=== PATIENT | male | born 1960 | race Caucasian/White ===

== ENCOUNTER 2018-12-27 11:00 | Emergency (ER) | payer MEDICARE, MEDICAID ==
[~2018-12-27] VITALS: Ht 180.3 cm; Wt 80.0 kg
--- NOTE | 2018-12-27 14:28 | NUR ---
pt states he's having some sob, acs protocol ordered
[2018-12-27 15:01] LABS: BASOPHILS % (AUTO) 0.6 % (0-1); EOSINOPHILS % (AUTO) 0.3 % (0-6); HEMATOCRIT 42.3 % (42.0-52.0); HEMOGLOBIN 14.3 g/dl (14.0-17.9); LYMPHOCYTES # (AUTO) 1.5 X10'3 (1.1-4.8); LYMPHOCYTES % (AUTO) 22.8 % (21-51); MEAN CORPUSCULAR HEMOGLOBIN 30.7 PG (27.0-31.0); MEAN CORPUSCULAR HGB CONC 33.8 g/dL (33.0-36.5); MEAN CORPUSCULAR VOLUME 90.9 FL (78-98); MEAN PLATELET VOLUME 8.3 FL (7.4-10.4); MONOCYTES # (AUTO) 0.5 X10'3 (0-0.9); NEUTROPHILS # (AUTO) 4.6 X10'3 (1.8-7.7); NEUTROPHILS % (AUTO) 69.3 % (42-75); PLATELET COUNT 190 X10'3 (140-440); RED BLOOD COUNT 4.65 X10'6 (4.70-6.10); RED CELL DISTRIBUTION WIDTH 13.4 % (11.5-14.5); WHITE BLOOD COUNT 6.7 X10'3 (4.5-11.0)
[2018-12-27 15:12] LABS: PARTIAL THROMBOPLASTIN TIME 26 SECONDS (22-32)
[2018-12-27 15:16] LABS: ALANINE AMINOTRANSFERASE 53 U/L (12-78); ALBUMIN 3.7 G/DL (3.4-5.0); ALBUMIN/GLOBULIN RATIO 1.1 (1.1-1.5); ALKALINE PHOSPHATASE 87 IU/L (46-116); ANION GAP 7 (8-16); ASPARTATE AMINO TRANSFERASE 32 U/L (10-37); BILIRUBIN,TOTAL 0.6 MG/DL (0.1-1.0); BLOOD UREA NITROGEN 18 MG/DL (7-18); CALCIUM 8.7 MG/DL (8.5-10.1); CHLORIDE 105 MMOL/L (99-107); GLUCOSE 129 MG/DL (70-104); SODIUM 139 MMOL/L (135-145); TOTAL CARBON DIOXIDE 27.5 MMOL/L (24-32); TOTAL PROTEIN 7.1 G/DL (6.4-8.2); eGFR 77 ML/MIN
[2018-12-27 16:27] VITALS: BP 98/58
== END 2018-12-27 16:29 | disposition home or self-care (01) ==
LOC: ER 11:01
DX: T43.211A Poisoning by selective serotonin and norepinephrine reuptake inhibitors, accidental (unintentional), initial encounter (principal); R42 Dizziness and giddiness; R53.83 Other fatigue; R68.2 Dry mouth, unspecified; Y92.89 Other specified places as the place of occurrence of the external cause
CPT/HCPCS: 36415; 71045; 80053; 84484; 85025; 85610; 85730; 93005; 99284

== ENCOUNTER 2019-12-09 15:52 | Emergency (ER) | payer MEDICARE, MEDICAID ==
[~2019-12-09] VITALS: Ht 180.3 cm; Wt 76.0 kg
[2019-12-09 15:58] VITALS: BP 124/53
--- NOTE | 2019-12-09 17:15 | NUR ---
ultrasound at [facility]
[2019-12-09 17:40] LABS: BASOPHILS # (AUTO) 0.1 X10'3 (0-0.2); BASOPHILS % (AUTO) 1.2 % (0-1); EOSINOPHILS % (AUTO) 0.7 % (0-6); HEMATOCRIT 38.8 % (42.0-52.0); HEMOGLOBIN 12.9 g/dl (14.0-17.9); LYMPHOCYTES # (AUTO) 2.1 X10'3 (1.1-4.8); LYMPHOCYTES % (AUTO) 36.5 % (21-51); MEAN CORPUSCULAR HGB CONC 33.3 g/dL (33.0-36.5); MEAN CORPUSCULAR VOLUME 93.1 FL (78-98); MEAN PLATELET VOLUME 9.1 FL (7.4-10.4); MONOCYTES # (AUTO) 0.6 X10'3 (0-0.9); MONOCYTES % (AUTO) 10.6 % (2-12); NEUTROPHILS # (AUTO) 2.9 X10'3 (1.8-7.7); PLATELET COUNT 167 X10'3 (140-440); RED BLOOD COUNT 4.17 X10'6 (4.70-6.10); RED CELL DISTRIBUTION WIDTH 12.9 % (11.5-14.5); WHITE BLOOD COUNT 5.7 X10'3 (4.5-11.0)
[2019-12-09 18:04] LABS: ALANINE AMINOTRANSFERASE 49 U/L (12-78); ALBUMIN 3.7 G/DL (3.4-5.0); ALBUMIN/GLOBULIN RATIO 1.1 (1.1-1.5); ALKALINE PHOSPHATASE 84 IU/L (46-116); ANION GAP 6 (8-16); ASPARTATE AMINO TRANSFERASE 36 U/L (10-37); BILIRUBIN,TOTAL 0.3 MG/DL (0.1-1.0); BLOOD UREA NITROGEN 24 MG/DL (7-18); BUN/CREATININE RATIO 26.7 (5.4-32.0); CALCIUM 8.5 MG/DL (8.5-10.1); CHLORIDE 105 MMOL/L (99-107); GLUCOSE 100 MG/DL (70-104); POTASSIUM 4.2 MMOL/L (3.5-5.1); SODIUM 141 MMOL/L (135-145); TOTAL CARBON DIOXIDE 29.6 MMOL/L (24-32); eGFR 86 ML/MIN
[2019-12-09] MEDS ORDERED: IBUP-1984 PO (18:27)
== END 2019-12-09 18:40 | disposition home or self-care (01) ==
LOC: ER 15:52
DX: M25.572 Pain in left ankle and joints of left foot (principal); M25.472 Effusion, left ankle; Z98.890 Other specified postprocedural states; Z79.899 Other long term (current) drug therapy
CPT/HCPCS: 29515; 36415; 73610; 80053; 85025; 85651; 93971; 99285

== ENCOUNTER 2019-12-12 15:10 | Emergency (ER) | payer MEDICARE, MEDICAID ==
[~2019-12-12] VITALS: Ht 180.3 cm; Wt 79.7 kg
[~2019-12-12 15:10] MED LIST: IBUP-1984 PO
[2019-12-12 16:39] LABS: BASOPHILS # (AUTO) 0.1 X10'3 (0-0.2); EOSINOPHILS % (AUTO) 0.5 % (0-6); HEMATOCRIT 39.4 % (42.0-52.0); LYMPHOCYTES # (AUTO) 1.9 X10'3 (1.1-4.8); LYMPHOCYTES % (AUTO) 35.6 % (21-51); MEAN CORPUSCULAR HEMOGLOBIN 30.3 PG (27.0-31.0); MEAN CORPUSCULAR HGB CONC 32.9 g/dL (33.0-36.5); MEAN CORPUSCULAR VOLUME 92.2 FL (78-98); MEAN PLATELET VOLUME 9.2 FL (7.4-10.4); MONOCYTES # (AUTO) 0.6 X10'3 (0-0.9); MONOCYTES % (AUTO) 10.1 % (2-12); NEUTROPHILS # (AUTO) 2.9 X10'3 (1.8-7.7); NEUTROPHILS % (AUTO) 52.8 % (42-75); PLATELET COUNT 166 X10'3 (140-440); RED BLOOD COUNT 4.27 X10'6 (4.70-6.10); RED CELL DISTRIBUTION WIDTH 12.8 % (11.5-14.5); WHITE BLOOD COUNT 5.5 X10'3 (4.5-11.0)
[2019-12-12] MEDS ORDERED: HYDROcodone/acetaminophen 10/325mg tab PO ONE (17:05)
[2019-12-12 17:12] VITALS: BP 106/79
== END 2019-12-12 17:13 | disposition home or self-care (01) ==
LOC: ER 15:10
DX: M25.572 Pain in left ankle and joints of left foot (principal); Z79.899 Other long term (current) drug therapy; Z87.891 Personal history of nicotine dependence
CPT/HCPCS: 36415; 84145; 85025; 99283

== ENCOUNTER 2019-12-29 12:57 | Day surgery (SDC) | payer MEDICARE, MEDICAID ==
[2019-12-29] MEDS ORDERED: LIDOcaine 2% 5ml jelly ONE (14:02)
== END 2019-12-29 14:10 | disposition home or self-care (01) ==
LOC: WOUND CARE 12:57 → EDSTATUS 13:20 → WOUND CARE 14:10
PROVIDERS: ATTEND Nurse Practitioner Family
DX: S91.002D Unspecified open wound, left ankle, subsequent encounter (principal); L97.322 Non-pressure chronic ulcer of left ankle with fat layer exposed; M86.672 Other chronic osteomyelitis, left ankle and foot; M25.472 Effusion, left ankle; Z98.890 Other specified postprocedural states; Z79.899 Other long term (current) drug therapy; Z87.891 Personal history of nicotine dependence; X58.XXXD Exposure to other specified factors, subsequent encounter
CPT/HCPCS: 97597

== ENCOUNTER 2020-01-02 09:59 | Day surgery (SDC) | payer MEDICARE, MEDICAID ==
[2020-01-02] MEDS ORDERED: LIDOcaine 2% 5ml jelly ONE (10:17)
[2020-01-02 12:01] LABS: BASOPHILS # (AUTO) 0.1 X10'3 (0-0.2); BASOPHILS % (AUTO) 0.8 % (0-1); EOSINOPHILS % (AUTO) 0.6 % (0-6); HEMATOCRIT 38.8 % (42.0-52.0); LYMPHOCYTES # (AUTO) 1.8 X10'3 (1.1-4.8); LYMPHOCYTES % (AUTO) 28.1 % (21-51); MEAN CORPUSCULAR HEMOGLOBIN 30.7 PG (27.0-31.0); MEAN CORPUSCULAR HGB CONC 33.4 g/dL (33.0-36.5); MEAN CORPUSCULAR VOLUME 91.9 FL (78-98); MEAN PLATELET VOLUME 8.7 FL (7.4-10.4); MONOCYTES # (AUTO) 0.6 X10'3 (0-0.9); MONOCYTES % (AUTO) 10.1 % (2-12); NEUTROPHILS # (AUTO) 3.9 X10'3 (1.8-7.7); NEUTROPHILS % (AUTO) 60.4 % (42-75); PLATELET COUNT 162 X10'3 (140-440); RED BLOOD COUNT 4.22 X10'6 (4.70-6.10); RED CELL DISTRIBUTION WIDTH 12.8 % (11.5-14.5); WHITE BLOOD COUNT 6.4 X10'3 (4.5-11.0)
[2020-01-02 12:20] LABS: ALANINE AMINOTRANSFERASE 46 U/L (12-78); ALBUMIN 3.7 G/DL (3.4-5.0); ALBUMIN/GLOBULIN RATIO 1.1 (1.1-1.5); ALKALINE PHOSPHATASE 75 IU/L (46-116); ANION GAP 9 (8-16); ASPARTATE AMINO TRANSFERASE 35 U/L (10-37); BILIRUBIN,TOTAL 0.5 MG/DL (0.1-1.0); BLOOD UREA NITROGEN 22 MG/DL (7-18); BUN/CREATININE RATIO 23.9 (5.4-32.0); CALCIUM 8.5 MG/DL (8.5-10.1); CHLORIDE 103 MMOL/L (99-107); CREATININE 0.92 MG/DL (0.60-1.10); GLUCOSE 89 MG/DL (70-104); POTASSIUM 4.3 MMOL/L (3.5-5.1); SODIUM 139 MMOL/L (135-145); TOTAL CARBON DIOXIDE 27.5 MMOL/L (24-32); eGFR 84 ML/MIN
[2020-01-02 12:36] LABS: C-REACTIVE PROTEIN < 0.05 MG/DL (0.0-0.5)
== END 2020-01-02 12:02 | disposition home or self-care (01) ==
LOC: WOUND CARE 09:59
PROVIDERS: ATTEND Nurse Practitioner
DX: S91.002D Unspecified open wound, left ankle, subsequent encounter (principal); L97.322 Non-pressure chronic ulcer of left ankle with fat layer exposed; M86.672 Other chronic osteomyelitis, left ankle and foot; M25.472 Effusion, left ankle; M25.572 Pain in left ankle and joints of left foot; Z98.890 Other specified postprocedural states; Z79.899 Other long term (current) drug therapy; Z87.891 Personal history of nicotine dependence; X58.XXXD Exposure to other specified factors, subsequent encounter
CPT/HCPCS: 36415; 73630; 80053; 85025; 85651; 86140; 87070; 87075; 87077; 87102; 87186; 97597

== ENCOUNTER 2020-01-07 13:05 | Day surgery (SDC) | payer MEDICARE, MEDICAID ==
[2020-01-07] MEDS ORDERED: LIDOcaine 2% 5ml jelly ONE (13:28)
== END 2020-01-07 14:30 | disposition home or self-care (01) ==
LOC: WOUND CARE 13:05
PROVIDERS: ATTEND Nurse Practitioner
DX: L97.322 Non-pressure chronic ulcer of left ankle with fat layer exposed (principal); M86.672 Other chronic osteomyelitis, left ankle and foot; M25.742 Osteophyte, left hand; Z98.890 Other specified postprocedural states; Z79.899 Other long term (current) drug therapy; Z87.891 Personal history of nicotine dependence
CPT/HCPCS: 97597

== ENCOUNTER → 2020-01-16 | Day surgery (SDC) | payer MEDICARE, MEDICAID ==
[~2020-01-16] MED LIST changes: -IBUP-1984 PO; +LIDOcaine 2% 5ml jelly ONE
== END | disposition home or self-care (01) ==
LOC: WOUND CARE 13:24
PROVIDERS: ATTEND Nurse Practitioner
DX: L97.322 Non-pressure chronic ulcer of left ankle with fat layer exposed (principal); M86.672 Other chronic osteomyelitis, left ankle and foot; M25.742 Osteophyte, left hand; Z98.890 Other specified postprocedural states; Z79.899 Other long term (current) drug therapy; Z87.891 Personal history of nicotine dependence
CPT/HCPCS: 97597

== ENCOUNTER 2020-01-23 13:22 | Day surgery (SDC) | payer MEDICARE, MEDICAID ==
[2020-01-23] MEDS ORDERED: LIDOcaine 2% 5ml jelly ONE (13:45)
[2020-01-23] MEDS ORDERED: GADOTERATE MEGLUMINE 7.5 MMOL/15 ML VIAL IV ONE (15:43)
[2020-02-02] MEDS ORDERED: BUPR8TAB4 SL (14:58)
[2020-02-02] MEDS ORDERED: GLEC1TAB PO (14:58)
[2020-02-02] MEDS ORDERED: TRAZ150T78 PO (14:58)
[2020-02-02] MEDS ORDERED: PRAZ1CAP5 PO (14:58)
== END 2020-01-23 14:45 | disposition home or self-care (01) ==
LOC: WOUND CARE 13:22
PROVIDERS: ATTEND Nurse Practitioner
DX: S91.002A Unspecified open wound, left ankle, initial encounter (principal); L97.322 Non-pressure chronic ulcer of left ankle with fat layer exposed; M86.672 Other chronic osteomyelitis, left ankle and foot; M25.742 Osteophyte, left hand; Z98.890 Other specified postprocedural states; Z79.899 Other long term (current) drug therapy; Z87.891 Personal history of nicotine dependence; X58.XXXA Exposure to other specified factors, initial encounter; Y93.89 Activity, other specified; Y92.89 Other specified places as the place of occurrence of the external cause; Y99.8 Other external cause status
CPT/HCPCS: 73723; 97597; A9575

== ENCOUNTER 2020-01-30 09:16 | Outpatient (CLI) | payer MEDICARE, MEDICAID ==
[2020-01-30 10:58] LABS: BASOPHILS # (AUTO) 0.1 X10'3 (0-0.2); EOSINOPHILS # (AUTO) 0.1 X10'3 (0-0.9); MEAN PLATELET VOLUME 8.9 FL (7.4-10.4); PRE OP PLATELET COUNT 173 X10'3 (140-440)
[2020-01-30 11:00] LABS: LYMPHOCYTES # (AUTO) 2.1 X10'3 (1.1-4.8); LYMPHOCYTES % (AUTO) 35.4 % (21-51); MEAN CORPUSCULAR HEMOGLOBIN 31.1 PG (27.0-31.0); MEAN CORPUSCULAR HGB CONC 33.8 g/dL (33.0-36.5); MEAN CORPUSCULAR VOLUME 91.9 FL (78-98); MONOCYTES # (AUTO) 0.7 X10'3 (0-0.9); MONOCYTES % (AUTO) 12.3 % (2-12); NEUTROPHILS % (AUTO) 50.3 % (42-75); PRE OP HEMATOCRIT 39.6 % (42.0-52.0); PRE OP HEMOGLOBIN 13.4 g/dL (14.0-17.9); RED BLOOD COUNT 4.31 X10'6 (4.70-6.10); RED CELL DISTRIBUTION WIDTH 12.8 % (11.5-14.5)
[2020-01-30 11:09] LABS: ALBUMIN 3.8 G/DL (3.4-5.0); ALBUMIN/GLOBULIN RATIO 1.2 (1.1-1.5); ALKALINE PHOSPHATASE 81 IU/L (46-116); BLOOD UREA NITROGEN 23 MG/DL (7-18); BUN/CREATININE RATIO 25.8 (5.4-32.0); CHLORIDE 103 MMOL/L (99-107); CREATININE 0.89 MG/DL (0.60-1.10); PRE OP ALT 33 U/L (30-65); PRE OP ANION GAP 7 (8-16); PRE OP AST 23 U/L (10-37); PRE OP BILIRUB, TOTAL 0.7 MG/DL (0.0-1.0); PRE OP GLUCOSE 87 MG/DL (70-104); PRE OP POTASSIUM 4.2 MMOL/L (3.4-5.1); PRE OP SODIUM 138 MMOL/L (135-145); TOTAL CARBON DIOXIDE 28.5 MMOL/L (24-32); TOTAL PROTEIN 7.1 G/DL (6.4-8.2); eGFR 87 ML/MIN
[2020-02-02] MEDS ORDERED: TRAZ150T78 PO (14:58)
[2020-02-02] MEDS ORDERED: PRAZ1CAP5 PO (14:58)
[2020-02-02] MEDS ORDERED: GLEC1TAB PO (14:58)
[2020-02-02] MEDS ORDERED: BUPR8TAB4 SL (14:58)
== END 2020-01-30 11:28 | disposition home or self-care (01) ==
LOC: WOUND CARE 09:16 → EDSTATUS 09:20 → WOUND CARE 11:28
PROVIDERS: ATTEND Nurse Practitioner
DX: S91.002D Unspecified open wound, left ankle, subsequent encounter (principal); M86.672 Other chronic osteomyelitis, left ankle and foot; M25.742 Osteophyte, left hand; Z98.890 Other specified postprocedural states; Z79.899 Other long term (current) drug therapy; Z87.891 Personal history of nicotine dependence; X58.XXXD Exposure to other specified factors, subsequent encounter
CPT/HCPCS: 80053; 85025; 87635; G0463

== ENCOUNTER 2020-02-06 05:34 | Day surgery (SDC) | payer MEDICARE, MEDICAID ==
[2020-02-06] VITALS (7 sets, daily range): BP systolic 96–133; BP diastolic 56–75
[~2020-02-06] VITALS: Ht 180.3 cm; Wt 78.0 kg
[~2020-02-06 05:34] MED LIST changes: +BUPR8TAB4 SL; +GLEC1TAB PO; -LIDOcaine 2% 5ml jelly ONE; +PRAZ1CAP5 PO; +TRAZ150T78 PO; +ceFAZolin 2gm in dextrose, iso 50 ML IV ONE; +famotidine 20mg tablet PO ONE; +ringers solution, lacted 1,000 ML IV SCH; +vancomycin 1,500 MG in NS 300ml IV soln IV ONE
[2020-02-06] MEDS ORDERED: LIDOcaine 1% (10mg/ml) 2ml vial ONE (06:33)
[2020-02-06] MEDS ORDERED: cloNIDine hcl/PF 100mcg/ml inj ONE (06:41)
[2020-02-06] MEDS ORDERED: fentaNYL/PF 50MCG/1 ML 2ML syringe ONE (06:55)
[2020-02-06] MEDS ORDERED: midazolam 2 mg/2 ml injection ONE (06:58)
[2020-02-06] MEDS ORDERED: vancomycin 1,000mg inj ONE (07:11)
[2020-02-06] MEDS ORDERED: propofol inj 20 ML IV ONE (07:25)
[2020-02-06] MEDS ORDERED: glycopyrrolate 0.2mg/ml inj ONE (07:26)
[2020-02-06] MEDS ORDERED: dexamethasone sod phosphate 4mg/ml inj. ONE (07:26)
[2020-02-06] MEDS ORDERED: ROPIVAcaine 0.5% (5mg/ml) 30ml vial ONE (07:26)
[2020-02-06] MEDS ORDERED: LIDOcaine 2% (20mg/ml) 5ml vial ONE (07:26)
[2020-02-06] MEDS ORDERED: bacitracin 15gm ointment TP ONE (07:34)
[2020-02-06] MEDS ORDERED: ondansetron/PF 4mg/2ml inj ONE (07:39)
[2020-02-06] MEDS ORDERED: ondansetron/PF 4mg/2ml inj IV PRN (07:50)
[2020-02-06] MEDS ORDERED: morphine 2 MG/ML inj. syringe IV PRN (07:50)
[2020-02-06] MEDS ORDERED: meperidine/PF 25mg/ml syringe IV PRN (07:50)
[2020-02-06] MEDS ORDERED: morphine 4 MG/ML inj SYRINge IV PRN (07:50)
[2020-02-06] MEDS ORDERED: acetaminophen 1,000mg/100ml IV 100 ML IV PRN (07:50)
[2020-02-06] MEDS ORDERED: proCHLORperazine 10 MG/2 ml inj IV PRN (07:50)
[2020-02-06] MEDS ORDERED: ringers solution, lacted 1,000 ML IV SCH (07:50)
[2020-02-06] MEDS ORDERED: HYDROmorphone inj. 0.5 MG/0.5 ML DISP.SYRIN IV PRN ×2 (07:50)
--- NOTE | 2020-02-06 07:50 | NUR ---
Received from OR via BED, accompanied by Anesthesiologist DR CALHOUN-- and report given by Anesthesiolgist. PATIENT A&OX4, DENIES PAIN, V/S WNL, NEUROVASCULAR CHECKS INTACT, 20G PIV LUE, SCD ON, DRESSING TO LEFT ANKLE CDI
--- NOTE | 2020-02-06 08:40 | NUR ---
PATIENT A&OX4, DENIES PAIN, V/S WNL, NEUROVASCULAR CHECKS INTACT, 20G PIV LUE D/C, SCD OFF, DRESSING TO LEFT ANKLE CDI. I HAVE REVIEWED D/C INSTRUCTIONS WITH PATIENT AND FAMILY AND THEY HAVE VERBALIZED UNDERSTANDING. PATIENT D/C HOME WITH ALL BELONGINGS AND FAMILY GAVE TRANSPORT HOME.
== END 2020-02-06 08:40 | disposition home or self-care (01) ==
LOC: PAS 05:34
PROVIDERS: ATTEND Podiatrist Foot & Ankle Surgery
DX: M86.672 Other chronic osteomyelitis, left ankle and foot (principal); G89.18 Other acute postprocedural pain; F41.9 Anxiety disorder, unspecified; Z79.899 Other long term (current) drug therapy; Z86.19 Personal history of other infectious and parasitic diseases; Z98.890 Other specified postprocedural states; Z87.891 Personal history of nicotine dependence
CPT/HCPCS: 28120; 64445; 64447; 76942; 82948; 87070; 87075; 87077; 87186; 93005; A6222; J0735; J1100; J2001; J2250; J2405; J2704; J3010; J3370; J7040; A4618; A6449; A7000; J2795; J3490; J7120

== ENCOUNTER 2020-02-12 09:20 | Day surgery (SDC) | payer MEDICARE, MEDICAID ==
[~2020-02-12 09:20] MED LIST changes: -ceFAZolin 2gm in dextrose, iso 50 ML IV ONE; -famotidine 20mg tablet PO ONE; -ringers solution, lacted 1,000 ML IV SCH; -vancomycin 1,500 MG in NS 300ml IV soln IV ONE
== END 2020-02-12 11:03 | disposition home or self-care (01) ==
LOC: WOUND CARE 09:20
PROVIDERS: ATTEND Nurse Practitioner
DX: T81.89XA Other complications of procedures, not elsewhere classified, initial encounter (principal); L97.322 Non-pressure chronic ulcer of left ankle with fat layer exposed; M86.672 Other chronic osteomyelitis, left ankle and foot; F41.9 Anxiety disorder, unspecified; M25.742 Osteophyte, left hand; Z98.890 Other specified postprocedural states; Z86.19 Personal history of other infectious and parasitic diseases; Z79.899 Other long term (current) drug therapy; Z87.891 Personal history of nicotine dependence; Y83.8 Other surgical procedures as the cause of abnormal reaction of the patient, or of later complication, without mention of misadventure at the time of the procedure; Y92.234 Operating room of hospital as the place of occurrence of the external cause
CPT/HCPCS: 97597

== ENCOUNTER 2020-02-20 10:29 | Outpatient (CLI) | payer MEDICARE, MEDICAID ==
[2020-02-20] MEDS ORDERED: LIDOcaine 2% 5ml jelly ONE ×2 (10:38→10:45)
== END 2020-02-20 11:15 | disposition home or self-care (01) ==
LOC: WOUND CARE 10:29
PROVIDERS: ATTEND Nurse Practitioner
DX: T81.89XD Other complications of procedures, not elsewhere classified, subsequent encounter (principal); L97.322 Non-pressure chronic ulcer of left ankle with fat layer exposed; M86.672 Other chronic osteomyelitis, left ankle and foot; F41.9 Anxiety disorder, unspecified; M25.742 Osteophyte, left hand; Z98.890 Other specified postprocedural states; Z86.19 Personal history of other infectious and parasitic diseases; Z79.899 Other long term (current) drug therapy; Z87.891 Personal history of nicotine dependence; Y83.8 Other surgical procedures as the cause of abnormal reaction of the patient, or of later complication, without mention of misadventure at the time of the procedure
CPT/HCPCS: 97597; G0463

== ENCOUNTER 2020-02-27 09:56 | Outpatient (CLI) | payer MEDICARE, MEDICAID ==
[2020-02-27] MEDS ORDERED: LIDOcaine 2% 5ml jelly ONE (10:09)
== END 2020-02-27 23:59 | disposition home or self-care (01) ==
LOC: WOUND CARE 09:56
PROVIDERS: ATTEND Nurse Practitioner
DX: T81.89XD Other complications of procedures, not elsewhere classified, subsequent encounter (principal); L97.322 Non-pressure chronic ulcer of left ankle with fat layer exposed; M86.672 Other chronic osteomyelitis, left ankle and foot; F41.9 Anxiety disorder, unspecified; M25.742 Osteophyte, left hand; Z86.19 Personal history of other infectious and parasitic diseases; Z98.890 Other specified postprocedural states; Z79.899 Other long term (current) drug therapy; Z87.891 Personal history of nicotine dependence; Y83.8 Other surgical procedures as the cause of abnormal reaction of the patient, or of later complication, without mention of misadventure at the time of the procedure
CPT/HCPCS: 11042

== ENCOUNTER → 2020-03-05 | Outpatient (CLI) | payer MEDICARE, MEDICAID ==
[~2020-03-05] MED LIST changes: +BACDS PO; +CEPH500C2 PO; +LIDOcaine 2% 5ml jelly ONE; +METR-159 PO
== END | disposition home or self-care (01) ==
LOC: EDSTATUS 09:20 → WOUND CARE 09:20
PROVIDERS: ATTEND Nurse Practitioner
DX: T81.89XD Other complications of procedures, not elsewhere classified, subsequent encounter (principal); L97.322 Non-pressure chronic ulcer of left ankle with fat layer exposed; M86.672 Other chronic osteomyelitis, left ankle and foot; F41.9 Anxiety disorder, unspecified; M25.742 Osteophyte, left hand; Z86.19 Personal history of other infectious and parasitic diseases; Z98.890 Other specified postprocedural states; Z79.899 Other long term (current) drug therapy; Z87.891 Personal history of nicotine dependence; Y83.8 Other surgical procedures as the cause of abnormal reaction of the patient, or of later complication, without mention of misadventure at the time of the procedure
CPT/HCPCS: 11042; 11045; 97605; 97607

== ENCOUNTER 2020-03-09 13:25 | Outpatient (CLI) | payer MEDICARE, MEDICAID ==
[~2020-03-09 13:25] MED LIST changes: -BACDS PO; -CEPH500C2 PO; -LIDOcaine 2% 5ml jelly ONE; -METR-159 PO
[2020-03-09] MEDS ORDERED: LIDOcaine 2% 5ml jelly ONE (14:14)
[2020-03-22] MEDS ORDERED: METR-159 PO (11:00)
== END 2020-03-09 23:59 | disposition home or self-care (01) ==
LOC: WOUND CARE 13:25
PROVIDERS: ATTEND Nurse Practitioner
DX: T81.89XD Other complications of procedures, not elsewhere classified, subsequent encounter (principal); L97.322 Non-pressure chronic ulcer of left ankle with fat layer exposed; M86.672 Other chronic osteomyelitis, left ankle and foot; L84 Corns and callosities; M25.742 Osteophyte, left hand; F41.9 Anxiety disorder, unspecified; Z86.19 Personal history of other infectious and parasitic diseases; Z98.890 Other specified postprocedural states; Z79.899 Other long term (current) drug therapy; Z87.891 Personal history of nicotine dependence; Z98.1 Arthrodesis status; Z86.14 Personal history of Methicillin resistant Staphylococcus aureus infection; Y83.8 Other surgical procedures as the cause of abnormal reaction of the patient, or of later complication, without mention of misadventure at the time of the procedure
CPT/HCPCS: 11042

== ENCOUNTER → 2020-03-12 | Outpatient (CLI) | payer MEDICARE, MEDICAID ==
[~2020-03-12] MED LIST changes: +LIDOcaine 2% 5ml jelly ONE
== END | disposition home or self-care (01) ==
LOC: EDSTATUS 10:00 → WOUND CARE 10:28
PROVIDERS: ATTEND Nurse Practitioner
DX: T81.89XD Other complications of procedures, not elsewhere classified, subsequent encounter (principal); L97.322 Non-pressure chronic ulcer of left ankle with fat layer exposed; M86.672 Other chronic osteomyelitis, left ankle and foot; L84 Corns and callosities; F41.9 Anxiety disorder, unspecified; M25.742 Osteophyte, left hand; Z86.19 Personal history of other infectious and parasitic diseases; Z98.890 Other specified postprocedural states; Z79.899 Other long term (current) drug therapy; Z87.891 Personal history of nicotine dependence; Y83.8 Other surgical procedures as the cause of abnormal reaction of the patient, or of later complication, without mention of misadventure at the time of the procedure
CPT/HCPCS: 11042; 87070; 87075; 87076; 87077; 87185; 87186; 93971

== ENCOUNTER 2020-03-19 10:15 | Outpatient (CLI) | payer MEDICARE, MEDICAID ==
[~2020-03-19 10:15] MED LIST changes: -LIDOcaine 2% 5ml jelly ONE
[2020-03-19] MEDS ORDERED: LIDOcaine 2% 5ml jelly ONE (11:11)
[2020-03-19] MEDS ORDERED: CEPH500C2 PO (17:18)
[2020-03-19] MEDS ORDERED: BACDS PO (17:18)
[2020-03-22] MEDS ORDERED: METR-159 PO (11:00)
== END 2020-03-19 23:59 | disposition home or self-care (01) ==
LOC: WOUND CARE 10:15
PROVIDERS: ATTEND Nurse Practitioner
DX: T81.89XD Other complications of procedures, not elsewhere classified, subsequent encounter (principal); L97.322 Non-pressure chronic ulcer of left ankle with fat layer exposed; M86.672 Other chronic osteomyelitis, left ankle and foot; L84 Corns and callosities; F41.9 Anxiety disorder, unspecified; M25.742 Osteophyte, left hand; Z86.19 Personal history of other infectious and parasitic diseases; Z98.890 Other specified postprocedural states; Z79.899 Other long term (current) drug therapy; Z87.891 Personal history of nicotine dependence; Z98.1 Arthrodesis status; Y83.8 Other surgical procedures as the cause of abnormal reaction of the patient, or of later complication, without mention of misadventure at the time of the procedure
CPT/HCPCS: 11042; 73721; G0463

== ENCOUNTER 2020-03-26 13:26 | Outpatient (CLI) | payer MEDICARE, MEDICAID ==
[~2020-03-26 13:26] MED LIST changes: -GLEC1TAB PO; +METR-159 PO
[2020-03-26] MEDS ORDERED: LIDOcaine 2% 5ml jelly ONE (14:11)
== END 2020-03-26 23:59 | disposition home or self-care (01) ==
LOC: WOUND CARE 13:26
PROVIDERS: ATTEND Nurse Practitioner
DX: T81.89XD Other complications of procedures, not elsewhere classified, subsequent encounter (principal); L97.322 Non-pressure chronic ulcer of left ankle with fat layer exposed; M86.672 Other chronic osteomyelitis, left ankle and foot; L84 Corns and callosities; N28.9 Disorder of kidney and ureter, unspecified; F41.9 Anxiety disorder, unspecified; B95.62 Methicillin resistant Staphylococcus aureus infection as the cause of diseases classified elsewhere; M79.89 Other specified soft tissue disorders; M25.742 Osteophyte, left hand; Z86.19 Personal history of other infectious and parasitic diseases; Z98.890 Other specified postprocedural states; Z79.899 Other long term (current) drug therapy; Z87.891 Personal history of nicotine dependence; Z98.1 Arthrodesis status; Y83.8 Other surgical procedures as the cause of abnormal reaction of the patient, or of later complication, without mention of misadventure at the time of the procedure
CPT/HCPCS: 11042

== ENCOUNTER 2020-04-05 13:19 | Outpatient (CLI) | payer MEDICARE, MEDICAID ==
[2020-04-05] MEDS ORDERED: LIDOcaine 2% 5ml jelly ONE (13:55)
== END 2020-04-05 23:59 | disposition home or self-care (01) ==
LOC: WOUND CARE 13:19
PROVIDERS: ATTEND Nurse Practitioner Family
DX: T81.89XD Other complications of procedures, not elsewhere classified, subsequent encounter (principal); L97.322 Non-pressure chronic ulcer of left ankle with fat layer exposed; M86.672 Other chronic osteomyelitis, left ankle and foot; L84 Corns and callosities; N28.9 Disorder of kidney and ureter, unspecified; F41.9 Anxiety disorder, unspecified; B95.62 Methicillin resistant Staphylococcus aureus infection as the cause of diseases classified elsewhere; M79.89 Other specified soft tissue disorders; M25.742 Osteophyte, left hand; Z86.19 Personal history of other infectious and parasitic diseases; Z98.890 Other specified postprocedural states; Z79.899 Other long term (current) drug therapy; Z87.891 Personal history of nicotine dependence; Z98.1 Arthrodesis status; Y83.8 Other surgical procedures as the cause of abnormal reaction of the patient, or of later complication, without mention of misadventure at the time of the procedure
CPT/HCPCS: 97597

== ENCOUNTER 2020-04-08 10:43 | Outpatient (CLI) | payer MEDICARE, MEDICAID ==
[2020-04-08] MEDS ORDERED: LIDOcaine 2% 5ml jelly ONE (11:00)
== END 2020-04-08 23:59 | disposition home or self-care (01) ==
LOC: WOUND CARE 10:43
PROVIDERS: ATTEND Nurse Practitioner Family
DX: T81.89XD Other complications of procedures, not elsewhere classified, subsequent encounter (principal); L97.322 Non-pressure chronic ulcer of left ankle with fat layer exposed; M86.672 Other chronic osteomyelitis, left ankle and foot; L84 Corns and callosities; N28.9 Disorder of kidney and ureter, unspecified; F41.9 Anxiety disorder, unspecified; B95.62 Methicillin resistant Staphylococcus aureus infection as the cause of diseases classified elsewhere; Z79.899 Other long term (current) drug therapy; Z87.891 Personal history of nicotine dependence; Z98.1 Arthrodesis status; Y83.8 Other surgical procedures as the cause of abnormal reaction of the patient, or of later complication, without mention of misadventure at the time of the procedure
CPT/HCPCS: 11042

== ENCOUNTER 2020-04-15 11:36 | Outpatient (CLI) | payer MEDICARE, MEDICAID ==
[2020-04-15] MEDS ORDERED: LIDOcaine 2% 5ml jelly ONE ×2 (12:23→12:24)
== END 2020-04-15 23:59 | disposition home or self-care (01) ==
LOC: WOUND CARE 11:36
PROVIDERS: ATTEND Nurse Practitioner
DX: T81.89XD Other complications of procedures, not elsewhere classified, subsequent encounter (principal); L97.322 Non-pressure chronic ulcer of left ankle with fat layer exposed; M86.672 Other chronic osteomyelitis, left ankle and foot; L84 Corns and callosities; N28.9 Disorder of kidney and ureter, unspecified; F41.9 Anxiety disorder, unspecified; Z79.899 Other long term (current) drug therapy; Z87.891 Personal history of nicotine dependence; Z98.1 Arthrodesis status; Z86.14 Personal history of Methicillin resistant Staphylococcus aureus infection; Z86.19 Personal history of other infectious and parasitic diseases; Y83.8 Other surgical procedures as the cause of abnormal reaction of the patient, or of later complication, without mention of misadventure at the time of the procedure
CPT/HCPCS: 11042

== ENCOUNTER 2020-04-22 10:16 | Outpatient (CLI) | payer MEDICARE, MEDICAID ==
[2020-04-22] MEDS ORDERED: LIDOcaine 2% 5ml jelly ONE (10:30)
== END 2020-04-22 23:59 | disposition home or self-care (01) ==
LOC: WOUND CARE 10:16
PROVIDERS: ATTEND Nurse Practitioner
DX: T81.89XD Other complications of procedures, not elsewhere classified, subsequent encounter (principal); L97.322 Non-pressure chronic ulcer of left ankle with fat layer exposed; M86.672 Other chronic osteomyelitis, left ankle and foot; L84 Corns and callosities; N28.9 Disorder of kidney and ureter, unspecified; F41.9 Anxiety disorder, unspecified; Z79.899 Other long term (current) drug therapy; Z87.891 Personal history of nicotine dependence; Z98.1 Arthrodesis status; Z86.14 Personal history of Methicillin resistant Staphylococcus aureus infection; Z86.19 Personal history of other infectious and parasitic diseases; Z98.890 Other specified postprocedural states; Y83.8 Other surgical procedures as the cause of abnormal reaction of the patient, or of later complication, without mention of misadventure at the time of the procedure
CPT/HCPCS: 11042

== ENCOUNTER 2020-05-13 11:47 | Outpatient (CLI) | payer MEDICARE, MEDICAID ==
[~2020-05-13 11:47] MED LIST changes: -METR-159 PO
[2020-05-13] MEDS ORDERED: LIDOcaine 2% 5ml jelly ONE (12:32)
== END 2020-05-13 23:59 | disposition home or self-care (01) ==
LOC: WOUND CARE 11:47
PROVIDERS: ATTEND Nurse Practitioner
DX: T81.89XD Other complications of procedures, not elsewhere classified, subsequent encounter (principal); L97.322 Non-pressure chronic ulcer of left ankle with fat layer exposed; M86.672 Other chronic osteomyelitis, left ankle and foot; L84 Corns and callosities; N28.9 Disorder of kidney and ureter, unspecified; F41.9 Anxiety disorder, unspecified; Z79.899 Other long term (current) drug therapy; Z87.891 Personal history of nicotine dependence; Z98.1 Arthrodesis status; Z86.14 Personal history of Methicillin resistant Staphylococcus aureus infection; Z86.19 Personal history of other infectious and parasitic diseases; Z98.890 Other specified postprocedural states; Y83.8 Other surgical procedures as the cause of abnormal reaction of the patient, or of later complication, without mention of misadventure at the time of the procedure
CPT/HCPCS: 11042

== ENCOUNTER 2020-05-30 13:02 | Emergency (ER) | payer MEDICARE, MEDICAID ==
[~2020-05-30] VITALS: Ht 180.3 cm; Wt 84.1 kg
[2020-05-30 13:12] VITALS: BP 116/73
[2020-05-30 13:46] LABS: HEMOGLOBIN 13.6 g/dl (14.0-17.9); MEAN PLATELET VOLUME 8.7 FL (7.4-10.4)
[2020-05-30 13:48] LABS: BASOPHILS % (AUTO) 0.5 % (0-1); EOSINOPHILS % (AUTO) 0.1 % (0-6); HEMATOCRIT 40.4 % (42.0-52.0); LYMPHOCYTES # (AUTO) 1.5 X10'3 (1.1-4.8); LYMPHOCYTES % (AUTO) 20.3 % (21-51); MEAN CORPUSCULAR HEMOGLOBIN 30.4 PG (27.0-31.0); MEAN CORPUSCULAR HGB CONC 33.6 g/dL (33.0-36.5); MEAN CORPUSCULAR VOLUME 90.5 FL (78-98); MONOCYTES % (AUTO) 12.8 % (2-12); NEUTROPHILS # (AUTO) 4.9 X10'3 (1.8-7.7); NEUTROPHILS % (AUTO) 66.3 % (42-75); PLATELET COUNT 155 X10'3 (140-440); RED BLOOD COUNT 4.46 X10'6 (4.70-6.10); RED CELL DISTRIBUTION WIDTH 13.6 % (11.5-14.5); WHITE BLOOD COUNT 7.5 X10'3 (4.5-11.0)
[2020-05-30 13:56] LABS: ALANINE AMINOTRANSFERASE 36 U/L (12-78); ALBUMIN 3.6 G/DL (3.4-5.0); ALKALINE PHOSPHATASE 90 IU/L (46-116); ANION GAP 7 (8-16); ASPARTATE AMINO TRANSFERASE 35 U/L (10-37); BILIRUBIN,TOTAL 0.6 MG/DL (0.1-1.0); BLOOD UREA NITROGEN 23 MG/DL (7-18); BUN/CREATININE RATIO 22.3 (5.4-32.0); CALCIUM 8.4 MG/DL (8.5-10.1); CHLORIDE 101 MMOL/L (99-107); CREATININE 1.03 MG/DL (0.60-1.10); GLUCOSE 133 MG/DL (70-104); POTASSIUM 3.8 MMOL/L (3.5-5.1); SODIUM 136 MMOL/L (135-145); TOTAL CARBON DIOXIDE 27.6 MMOL/L (24-32); TOTAL PROTEIN 7.1 G/DL (6.4-8.2); eGFR 74 ML/MIN
[2020-05-30 16:02] LABS: C-REACTIVE PROTEIN 6.17 MG/DL (0.0-0.5)
[2020-05-30] MEDS ORDERED: SULF1TAB49 PO (17:40)
== END 2020-05-30 18:07 | disposition home or self-care (01) ==
LOC: ER 13:02
DX: L03.116 Cellulitis of left lower limb (principal); Z87.81 Personal history of (healed) traumatic fracture; Z79.899 Other long term (current) drug therapy
CPT/HCPCS: 36415; 73590; 73620; 80053; 83605; 84145; 85025; 85651; 86140; 87040; 93971; 99285

== ENCOUNTER → 2020-07-09 | Outpatient (CLI) | payer MEDICARE, MEDICAID ==
[~2020-07-09] MED LIST changes: +LIDOcaine 2% 5ml jelly ONE
== END | disposition home or self-care (01) ==
LOC: EDSTATUS 11:00 → WOUND CARE 11:31
PROVIDERS: ATTEND Nurse Practitioner
DX: T81.89XD Other complications of procedures, not elsewhere classified, subsequent encounter (principal); L97.322 Non-pressure chronic ulcer of left ankle with fat layer exposed; M86.672 Other chronic osteomyelitis, left ankle and foot; L84 Corns and callosities; N18.9 Chronic kidney disease, unspecified; F41.9 Anxiety disorder, unspecified; Z79.899 Other long term (current) drug therapy; Z87.891 Personal history of nicotine dependence; Z98.1 Arthrodesis status; Z86.14 Personal history of Methicillin resistant Staphylococcus aureus infection; Z86.19 Personal history of other infectious and parasitic diseases; Z98.890 Other specified postprocedural states; Y83.8 Other surgical procedures as the cause of abnormal reaction of the patient, or of later complication, without mention of misadventure at the time of the procedure
CPT/HCPCS: 11042

== ENCOUNTER 2020-08-20 12:46 | Day surgery (SDC) | payer MEDICARE, MEDICAID ==
[2020-08-16 11:53] LABS: BASOPHILS # (AUTO) 0.1 X10'3 (0-0.2); BASOPHILS % (AUTO) 0.8 % (0-1); EOSINOPHILS % (AUTO) 0.3 % (0-6); LYMPHOCYTES # (AUTO) 1.6 X10'3 (1.1-4.8); LYMPHOCYTES % (AUTO) 24.6 % (21-51); MEAN CORPUSCULAR HEMOGLOBIN 29.9 PG (27.0-31.0); MEAN CORPUSCULAR HGB CONC 32.9 g/dL (33.0-36.5); MEAN PLATELET VOLUME 8.3 FL (7.4-10.4); MONOCYTES # (AUTO) 0.5 X10'3 (0-0.9); MONOCYTES % (AUTO) 7.9 % (2-12); NEUTROPHILS # (AUTO) 4.4 X10'3 (1.8-7.7); NEUTROPHILS % (AUTO) 66.4 % (42-75); PRE OP HEMATOCRIT 39.6 % (42.0-52.0); PRE OP PLATELET COUNT 199 X10'3 (140-440); RED BLOOD COUNT 4.35 X10'6 (4.70-6.10); RED CELL DISTRIBUTION WIDTH 13.7 % (11.5-14.5)
[2020-08-16 12:13] LABS: ALBUMIN 3.8 G/DL (3.4-5.0); ALBUMIN/GLOBULIN RATIO 1.2 (1.1-1.5); ALKALINE PHOSPHATASE 89 IU/L (46-116); BLOOD UREA NITROGEN 27 MG/DL (7-18); CALCIUM 8.7 MG/DL (8.5-10.1); CHLORIDE 107 MMOL/L (99-107); CREATININE 0.75 MG/DL (0.60-1.10); PRE OP ALT 31 U/L (30-65); PRE OP ANION GAP 8 (8-16); PRE OP AST 30 U/L (10-37); PRE OP BILIRUB, TOTAL 0.5 MG/DL (0.0-1.0); PRE OP GLUCOSE 93 MG/DL (70-104); PRE OP POTASSIUM 4.2 MMOL/L (3.4-5.1); PRE OP SODIUM 142 MMOL/L (135-145); TOTAL CARBON DIOXIDE 26.8 MMOL/L (24-32); TOTAL PROTEIN 7.1 G/DL (6.4-8.2); eGFR > 90 ML/MIN
[2020-08-20] VITALS (7 sets, daily range): BP systolic 100–126; BP diastolic 58–88
[~2020-08-20] VITALS: Ht 180.3 cm; Wt 82.0 kg
[~2020-08-20 12:46] MED LIST changes: +DOXE10CA2 PO; -LIDOcaine 2% 5ml jelly ONE; -PRAZ1CAP5 PO; -TRAZ150T78 PO; +cefazolin/dext.iso 2gm/100ml 100 ML IV ONE; +famotidine 20mg tablet PO ONE; +ringers solution, lacted 1,000 ML IV SCH
[2020-08-20] MEDS ORDERED: LIDOcaine 2% (20mg/ml) 5ml vial ONE (13:44)
[2020-08-20] MEDS ORDERED: propofol inj 20 ML IV ONE (13:44)
[2020-08-20] MEDS ORDERED: ondansetron/PF 4mg/2ml inj ONE (13:44)
[2020-08-20] MEDS ORDERED: dexamethasone sod phosphate 4mg/ml inj. ONE (13:44)
[2020-08-20] MEDS ORDERED: fentaNYL/PF 50MCG/1 ML 2ML syringe ONE (13:46)
[2020-08-20] MEDS ORDERED: bacitracin 15gm ointment TP ONE (14:23)
[2020-08-20] MEDS ORDERED: BUPIVAcaine/PF 2.5 mg/ml (0.25%) 30ml vial ONE (14:23)
--- NOTE | 2020-08-20 14:42 | NUR ---
Received from OR via , accompanied by Anesthesiologist DR NGUYEN and report given by Anesthesiolgist. AWAKENS TO VOICE. VITALS STABLE. DRESSING DI. THOM PAIN.
--- NOTE | 2020-08-20 15:42 | NUR ---
AWAKE AND ORIENTED. VITALS STABLE., DRESSING DI. THOM PAIN. HOME WITH HIS AT THIS TIME.
== END 2020-08-20 15:42 | disposition home or self-care (01) ==
LOC: PAS 12:46
PROVIDERS: ATTEND Podiatrist Foot & Ankle Surgery
DX: B07.0 Plantar wart (principal); M86.672 Other chronic osteomyelitis, left ankle and foot; F41.9 Anxiety disorder, unspecified; G47.00 Insomnia, unspecified; G89.29 Other chronic pain; Z79.899 Other long term (current) drug therapy; Z98.890 Other specified postprocedural states; Z87.891 Personal history of nicotine dependence
CPT/HCPCS: 28039; 36415; 80053; 82948; 85025; 93005; A6223; J1100; J2001; J2405; J2704; J3010; J3490; A4215; A4618; A6449; J7120

== ENCOUNTER 2020-11-25 17:13 | Emergency (ER) | payer MEDICARE, MEDICAID ==
[~2020-11-25] VITALS: Ht 180.3 cm; Wt 81.5 kg
[~2020-11-25 17:13] MED LIST changes: -cefazolin/dext.iso 2gm/100ml 100 ML IV ONE; -famotidine 20mg tablet PO ONE; -ringers solution, lacted 1,000 ML IV SCH
[2020-11-25 17:19] VITALS: BP 117/77
[2020-11-25] MEDS ORDERED: HYDR-3972 PO (18:39)
== END 2020-11-25 18:59 | disposition home or self-care (01) ==
LOC: ER 17:13
DX: S20.211A Contusion of right front wall of thorax, initial encounter (principal); Z87.81 Personal history of (healed) traumatic fracture; Z79.899 Other long term (current) drug therapy; W19.XXXA Unspecified fall, initial encounter; Y93.89 Activity, other specified; Y92.89 Other specified places as the place of occurrence of the external cause; Y99.8 Other external cause status
CPT/HCPCS: 71046; 99284

== ENCOUNTER 2020-12-05 15:02 | Emergency (ER) | payer MEDICARE, MEDICAID ==
[~2020-12-05] VITALS: Ht 180.3 cm; Wt 87.0 kg
[~2020-12-05 15:02] MED LIST changes: +HYDR-3972 PO
[2020-12-05 15:07] VITALS: BP 135/71
[2020-12-05 16:08] LABS: BASOPHILS # (AUTO) 0.1 X10'3 (0-0.2); BASOPHILS % (AUTO) 0.9 % (0-1); EOSINOPHILS # (AUTO) 0.2 X10'3 (0-0.9); EOSINOPHILS % (AUTO) 2.1 % (0-6); HEMATOCRIT 37.8 % (42.0-52.0); HEMOGLOBIN 12.9 g/dl (14.0-17.9); LYMPHOCYTES # (AUTO) 2.2 X10'3 (1.1-4.8); LYMPHOCYTES % (AUTO) 26.1 % (21-51); MEAN CORPUSCULAR HEMOGLOBIN 30.5 PG (27.0-31.0); MEAN CORPUSCULAR VOLUME 89.9 FL (78-98); MEAN PLATELET VOLUME 7.9 FL (7.4-10.4); MONOCYTES # (AUTO) 0.8 X10'3 (0-0.9); MONOCYTES % (AUTO) 9.5 % (2-12); NEUTROPHILS # (AUTO) 5.3 X10'3 (1.8-7.7); NEUTROPHILS % (AUTO) 61.4 % (42-75); PLATELET COUNT 214 X10'3 (140-440); RED BLOOD COUNT 4.21 X10'6 (4.70-6.10); RED CELL DISTRIBUTION WIDTH 13.5 % (11.5-14.5); WHITE BLOOD COUNT 8.6 X10'3 (4.5-11.0)
[2020-12-05 16:24] LABS: ALANINE AMINOTRANSFERASE 37 U/L (12-78); ALBUMIN 3.5 G/DL (3.4-5.0); ALKALINE PHOSPHATASE 162 IU/L (46-116); ANION GAP 9 (8-16); ASPARTATE AMINO TRANSFERASE 33 U/L (10-37); BILIRUBIN,TOTAL 0.3 MG/DL (0.1-1.0); BLOOD UREA NITROGEN 20 MG/DL (7-18); BUN/CREATININE RATIO 21.7 (5.4-32.0); CALCIUM 8.7 MG/DL (8.5-10.1); CHLORIDE 106 MMOL/L (99-107); CREATININE 0.92 MG/DL (0.60-1.10); GLUCOSE 98 MG/DL (70-104); POTASSIUM 4.4 MMOL/L (3.5-5.1); SODIUM 143 MMOL/L (135-145); TOTAL CARBON DIOXIDE 28.2 MMOL/L (24-32); eGFR 84 ML/MIN
[2020-12-05] MEDS ORDERED: FURO-150 PO (16:50)
== END 2020-12-05 17:13 | disposition home or self-care (01) ==
LOC: ER 15:03
DX: R60.0 Localized edema (principal); R11.2 Nausea with vomiting, unspecified; I11.0 Hypertensive heart disease with heart failure; I50.9 Heart failure, unspecified; Z87.81 Personal history of (healed) traumatic fracture; Z79.899 Other long term (current) drug therapy
CPT/HCPCS: 36415; 80053; 83880; 85025; 93971; 99284